=== PATIENT | male | born 1955 | race Caucasian/White ===

== ENCOUNTER 2019-11-11 23:38 | Inpatient (IN) ==
[2019-11-12] MEDS ORDERED: SODIUM CHLORIDE 0.9% 1,000 ML IV STA ×2 (00:22→00:49)
[2019-11-12 00:36] LABS: Basophils % 0.3 % (0.0-0.8); Eosinophils % 0.1 % (0.00-10.9); Hematocrit 57.4 VOL% (42.0-52.0); Immature Granulocytes % 1.4 %; Immature Granulocytes Absolute 0.14 #; Lymphocytes # 1.2 10*3/uL (1.4-4.0); Lymphocytes % 11.6 % (21.2-54.2); Mean Corpuscular HGB Conc 33.1 GM/DL (32-36); Mean Corpuscular Volume 97.6 FL (87-102); Mean Platelet Volume 12.3 FL (9.6-12.0); Monocytes % 8.3 % (1.7-12.7); NRBC # 0.02 10*3/uL; Neutrophils % 78.3 % (38.7-73.9); Platelet Count 167 T/CUMM (130-400); Red Blood Count 5.88 MC/CUMM (3.8-5.5); Red Cell Distribution Width 17.2 % (9.3-17.3)
[2019-11-12 00:44] LABS: INR 2.7
[2019-11-12 00:49] LABS: PT Patient Result 27.2 SECS (9.8-11.9)
[2019-11-12] MEDS ORDERED: VANCOMYCIN INJ 1,000 MG in SODIUM CHLORIDE 0.9% 250 ML IV STA (00:57)
[2019-11-12] MEDS ORDERED: PIPERACILLIN/TAZOBACTAM 3,375 MG in SODIUM CHLORIDE 0.9% 100 ML IV STA (00:57)
[2019-11-12 01:23] LABS: Albumin 2.9 G/DL (3.4-5.0); Bilirubin,Total 2.8 MG/DL (0.2-1.0); CKMB % 3.8 %; Calcium 8.8 MG/DL (8.5-10.1); Osmolality,Calculated 272.5 MOS/KG (273-304); Total Protein 5.5 G/DL (6.4-8.3)
[2019-11-12 01:28] LABS: Troponin I 0.085 NG/ML (0.00-0.045)
[2019-11-12 01:41] LABS: Amorphous Crystals,Urine Occasional /HPF (Few); Apearance,Urine CLOUDY (Clear); Bilirubin,Urine Small mg/dL (Negative); Blood, Urine Small mg/dL (Negative); Calcium Oxalate Crystals,Urine Occasional /HPF (Few); Glucose,Urine (UA) 50 mg/dL (Negative); Hyaline Casts,Urine 43 /LPF (0-3); Ketones,Urine Negative (Negative); Mucus,Urine Occasional /LPF (Occasional); Nitrite,Urine Negative (Negative); Protein,Urine 100 MG/DL; RBC,Urine 24 /HPF (0-4); Sperm,Urine Occasional /HPF (Negative); Squamous Epithelial Cell,Urine Occasional /HPF (0-10); Urine Color Amber (Yellow); Urine Specific Gravity 1.026 (1.001-1.035); WBC,Urine 31 /HPF (0-6)
[2019-11-12] MEDS ORDERED: DOCUSATE SODIUM 100 MG CAPSULE PO PRN (02:48)
[2019-11-12] MEDS ORDERED: ONDANSETRON 4 MG/2 ML VIAL IV PRN (02:48)
[2019-11-12] MEDS ORDERED: ACETAMINOPHEN 325 MG TABLET PO PRN (02:48)
[2019-11-12] MEDS ORDERED: GLUCAGON 1 MG VIAL IM PRN (02:48)
[2019-11-12] MEDS ORDERED: DEXTROSE 10% 250 ML BAG IV PRN (02:48)
[2019-11-12 05:46] LABS: Basophils % 0.4 % (0.0-0.8); Eosinophils % 0.1 % (0.00-10.9); Hematocrit 56.5 VOL% (42.0-52.0); Hemoglobin 18.2 GM/DL (14.0-18.0); Immature Granulocytes % 0.9 %; Lymphocytes # 1.2 10*3/uL (1.4-4.0); Lymphocytes % 11.3 % (21.2-54.2); Mean Corpuscular HGB Conc 32.2 GM/DL (32-36); Mean Corpuscular Volume 100.2 FL (87-102); Mean Platelet Volume 11.6 FL (9.6-12.0); Monocytes % 9.2 % (1.7-12.7); Neutrophils % 78.1 % (38.7-73.9); Platelet Count 133 T/CUMM (130-400); Red Blood Count 5.64 MC/CUMM (3.8-5.5); Red Cell Distribution Width 16.5 % (9.3-17.3)
[2019-11-12 06:23] LABS: Albumin 2.9 G/DL (3.4-5.0); Bilirubin,Total 2.5 MG/DL (0.2-1.0); Calcium 8.7 MG/DL (8.5-10.1); Osmolality,Calculated 274.5 MOS/KG (273-304); Risk Ratio 4.74; Thyroid Stimulating Hormone 3.97 uIU/ml (0.358-3.74); Total Protein 5.6 G/DL (6.4-8.3); VLDL CHOLESTEROL 24.6 MG/DL
[2019-11-12 06:26] LABS: Macrocytosis 1+; Polychromasia Slight; Target Cells Slight
[2019-11-12 06:27] LABS: Platelet Estimate Adequate
[2019-11-12] MEDS ORDERED: FUROSEMIDE 40 MG/4 ML VIAL IV SCH ×2 (08:00→09:00)
[2019-11-12] MEDS: ASPIRIN EC 81 MG TABLET PO SCH (09:42)
[2019-11-12] MEDS: PANTOPRAZOLE 40 MG TABLET PO SCH (09:42)
[2019-11-12] MEDS: METOPROLOL TARTRATE 25 MG TABLET PO SCH ×2 (09:42→21:19)
[2019-11-12] MEDS: PIPERACILLIN/TAZOBACTAM 3,375 MG in SODIUM CHLORIDE 0.9% 100 ML IV SCH ×2 (09:42→16:21)
[2019-11-12] MEDS: ENOXAPARIN 40 MG/0.4 ML SYRINGE SUBCUT SCH (09:43)
[2019-11-13] MEDS: PIPERACILLIN/TAZOBACTAM 3,375 MG in SODIUM CHLORIDE 0.9% 100 ML IV SCH ×3 (01:52→16:21)
[2019-11-13 06:40] LABS: Calcium 8.4 MG/DL (8.5-10.1); Osmolality,Calculated 271.9 MOS/KG (273-304)
[2019-11-13] MEDS: ASPIRIN EC 81 MG TABLET PO SCH (08:44)
[2019-11-13] MEDS: ENOXAPARIN 40 MG/0.4 ML SYRINGE SUBCUT SCH (08:44)
[2019-11-13] MEDS: PANTOPRAZOLE 40 MG TABLET PO SCH (08:44)
[2019-11-13] MEDS: METOPROLOL TARTRATE 25 MG TABLET PO SCH ×2 (08:44→22:00)
[2019-11-13] MEDS: DOBUTamine 500 MG/250 ML PREMIX IV SCH (09:20)
[2019-11-13] MEDS: FUROSEMIDE 40 MG/4 ML VIAL IV SCH (16:21)
[2019-11-14] MEDS: PIPERACILLIN/TAZOBACTAM 3,375 MG in SODIUM CHLORIDE 0.9% 100 ML IV SCH ×3 (00:38→16:32)
[2019-11-14] MEDS: DOBUTamine 500 MG/250 ML PREMIX IV SCH ×2 (02:50→21:16)
[2019-11-14 05:53] LABS: Basophils % 0.3 % (0.0-0.8); Eosinophils # 0.1 10*3/uL (0.0-0.87); Eosinophils % 1.1 % (0.00-10.9); Hematocrit 45.4 VOL% (42.0-52.0); Hemoglobin 14.9 GM/DL (14.0-18.0); Immature Granulocytes % 0.5 %; Immature Granulocytes Absolute 0.04 #; Lymphocytes # 0.7 10*3/uL (1.4-4.0); Lymphocytes % 9.4 % (21.2-54.2); Mean Corpuscular HGB Conc 32.8 GM/DL (32-36); Mean Corpuscular Volume 98.5 FL (87-102); Mean Platelet Volume 11.6 FL (9.6-12.0); Monocytes % 9.9 % (1.7-12.7); Neutrophils % 78.8 % (38.7-73.9); Platelet Count 86 T/CUMM (130-400); Red Blood Count 4.61 MC/CUMM (3.8-5.5); Red Cell Distribution Width 16.2 % (9.3-17.3); White Blood Count 7.9 T/CUMM (4-12)
[2019-11-14 06:06] LABS: Calcium 7.9 MG/DL (8.5-10.1); Osmolality,Calculated 278.4 MOS/KG (273-304)
[2019-11-14] MEDS ORDERED: POTASSIUM CHLORIDE 20 MEQ TABLET PO PRN ×3 (06:19→06:27)
[2019-11-14 06:26] LABS: Hypochromasia Slight
[2019-11-14 06:27] LABS: Platelet Estimate Decreased
[2019-11-14] MEDS: FUROSEMIDE 40 MG/4 ML VIAL IV SCH ×2 (08:37→16:31)
[2019-11-14] MEDS: POTASSIUM CHLORIDE 10 MEQ TABLET PO SCH ×2 (08:51→21:16)
[2019-11-14] MEDS: MAGNESIUM CHLORIDE 64 MG TABLET PO SCH ×2 (08:51→21:17)
[2019-11-14] MEDS: METOPROLOL TARTRATE 25 MG TABLET PO SCH ×2 (08:51→21:17)
[2019-11-14] MEDS: ASPIRIN EC 81 MG TABLET PO SCH (08:51)
[2019-11-15] MEDS: PIPERACILLIN/TAZOBACTAM 3,375 MG in SODIUM CHLORIDE 0.9% 100 ML IV SCH ×3 (01:23→18:21)
[2019-11-15 05:28] LABS: Basophils % 0.4 % (0.0-0.8); Eosinophils % 0.7 % (0.00-10.9); Hematocrit 44.1 VOL% (42.0-52.0); Hemoglobin 14.6 GM/DL (14.0-18.0); Immature Granulocytes % 0.4 %; Immature Granulocytes Absolute 0.02 #; Lymphocytes # 0.4 10*3/uL (1.4-4.0); Lymphocytes % 7.3 % (21.2-54.2); Mean Corpuscular HGB Conc 33.1 GM/DL (32-36); Mean Corpuscular Volume 98.9 FL (87-102); Mean Platelet Volume 11.4 FL (9.6-12.0); Monocytes % 7.6 % (1.7-12.7); Neutrophils % 83.6 % (38.7-73.9); Platelet Count 85 T/CUMM (130-400); Red Blood Count 4.46 MC/CUMM (3.8-5.5); Red Cell Distribution Width 15.9 % (9.3-17.3); White Blood Count 5.4 T/CUMM (4-12)
[2019-11-15 05:48] LABS: Calcium 7.9 MG/DL (8.5-10.1); Osmolality,Calculated 278.1 MOS/KG (273-304)
[2019-11-15 05:51] LABS: Band Neutrophils 1 % (0-10); Lymphocytes 4 % (20-55); Segmented Neutrophils 93 % (50-85); Total Cells Counted 100
[2019-11-15 05:52] LABS: Hypochromasia Slight; Macrocytosis Slight; Platelet Estimate Decreased; Polychromasia Slight
[2019-11-15] MEDS: METOPROLOL TARTRATE 25 MG TABLET PO SCH ×2 (08:40→20:57)
[2019-11-15] MEDS: FUROSEMIDE 40 MG/4 ML VIAL IV SCH ×2 (08:40→16:19)
[2019-11-15] MEDS: POTASSIUM CHLORIDE 20 MEQ TABLET PO SCH ×2 (08:40→20:57)
[2019-11-15] MEDS: ASPIRIN EC 81 MG TABLET PO SCH (08:40)
[2019-11-15] MEDS: MAGNESIUM CHLORIDE 64 MG TABLET PO SCH ×2 (08:41→20:57)
[2019-11-15] MEDS: metOLazone 5 MG TABLET PO SCH (09:42)
[2019-11-15] MEDS: FLUCONAZOLE 200 MG TABLET PO SCH (12:46)
[2019-11-15] MEDS: DOBUTamine 500 MG/250 ML PREMIX IV SCH (18:09)
[2019-11-15] MEDS: AZITHROMYCIN INJ 500 MG in SODIUM CHLORIDE 0.9% 250 ML IV SCH (22:33)
[2019-11-16 04:02] LABS: Basophils % 0.2 % (0.0-0.8); Eosinophils % 0.9 % (0.00-10.9); Hematocrit 47.2 VOL% (42.0-52.0); Hemoglobin 15.3 GM/DL (14.0-18.0); Immature Granulocytes % 0.4 %; Immature Granulocytes Absolute 0.02 #; Lymphocytes # 0.7 10*3/uL (1.4-4.0); Lymphocytes % 14.9 % (21.2-54.2); Mean Corpuscular HGB Conc 32.4 GM/DL (32-36); Mean Corpuscular Volume 99.4 FL (87-102); Mean Platelet Volume 11.4 FL (9.6-12.0); Monocytes % 11.2 % (1.7-12.7); Neutrophils % 72.4 % (38.7-73.9); Red Blood Count 4.75 MC/CUMM (3.8-5.5); Red Cell Distribution Width 15.9 % (9.3-17.3); White Blood Count 4.6 T/CUMM (4-12)
[2019-11-16 04:06] LABS: Platelet Count 79 T/CUMM (130-400)
[2019-11-16] MEDS: PIPERACILLIN/TAZOBACTAM 3,375 MG in SODIUM CHLORIDE 0.9% 100 ML IV SCH ×3 (04:16→20:37)
[2019-11-16 04:34] LABS: Hypochromasia Slight; Macrocytosis Slight; Polychromasia Slight
[2019-11-16 04:35] LABS: Platelet Estimate Decreased
[2019-11-16 05:44] LABS: Calcium 8.3 MG/DL (8.5-10.1); Osmolality,Calculated 275.1 MOS/KG (273-304)
[2019-11-16] MEDS ORDERED: MAGNESIUM SULF RIDER 2 GM in PREMIX 1 EACH IV PRN (06:22)
[2019-11-16] MEDS ORDERED: MAGNESIUM SULF RIDER 4 GM in PREMIX 1 EACH IV PRN (06:22)
[2019-11-16] MEDS: DOBUTamine 500 MG/250 ML PREMIX IV SCH ×2 (06:58→11:21)
[2019-11-16] MEDS ORDERED: MAGNESIUM SULF RIDER 4 GM in PREMIX 1 EACH IV ONE (07:33)
[2019-11-16] MEDS: FUROSEMIDE 40 MG/4 ML VIAL IV SCH ×2 (08:41→17:26)
[2019-11-16] MEDS: METOPROLOL TARTRATE 25 MG TABLET PO SCH ×2 (09:47→20:39)
[2019-11-16] MEDS: MAGNESIUM CHLORIDE 64 MG TABLET PO SCH ×2 (09:47→20:38)
[2019-11-16] MEDS: metOLazone 5 MG TABLET PO SCH (09:47)
[2019-11-16] MEDS: ASPIRIN EC 81 MG TABLET PO SCH (09:47)
[2019-11-16] MEDS: FLUCONAZOLE 200 MG TABLET PO SCH (09:48)
[2019-11-16] MEDS: POTASSIUM CHLORIDE 20 MEQ TABLET PO SCH ×2 (09:48→20:38)
[2019-11-16] MEDS: ALBUMIN 25% 25 GM in PREMIX 1 EACH IV SCH (17:32)
[2019-11-17] MEDS: ALBUMIN 25% 25 GM in PREMIX 1 EACH IV SCH ×3 (01:55→15:28)
[2019-11-17] MEDS: PIPERACILLIN/TAZOBACTAM 3,375 MG in SODIUM CHLORIDE 0.9% 100 ML IV SCH ×3 (01:57→17:38)
[2019-11-17] MEDS: DOBUTamine 500 MG/250 ML PREMIX IV SCH ×2 (05:28→23:26)
[2019-11-17 06:51] LABS: Basophils % 0.2 % (0.0-0.8); Eosinophils % 0.7 % (0.00-10.9); Hematocrit 43.3 VOL% (42.0-52.0); Immature Granulocytes % 0.4 %; Immature Granulocytes Absolute 0.02 #; Lymphocytes # 0.6 10*3/uL (1.4-4.0); Lymphocytes % 11.1 % (21.2-54.2); Mean Corpuscular HGB Conc 32.3 GM/DL (32-36); Mean Corpuscular Volume 98.9 FL (87-102); Mean Platelet Volume 11.8 FL (9.6-12.0); Neutrophils % 77.6 % (38.7-73.9); Red Blood Count 4.38 MC/CUMM (3.8-5.5); Red Cell Distribution Width 16.1 % (9.3-17.3); White Blood Count 5.5 T/CUMM (4-12)
[2019-11-17 06:53] LABS: Platelet Count 81 T/CUMM (130-400)
[2019-11-17 07:27] LABS: Calcium 8.5 MG/DL (8.5-10.1); Osmolality,Calculated 275.1 MOS/KG (273-304)
[2019-11-17 09:03] LABS: Hypochromasia Slight; Platelet Estimate Decreased
[2019-11-17 09:04] LABS: Macrocytosis Slight
[2019-11-17] MEDS: MAGNESIUM CHLORIDE 64 MG TABLET PO SCH ×2 (09:17→21:09)
[2019-11-17] MEDS: ASPIRIN EC 81 MG TABLET PO SCH (09:17)
[2019-11-17] MEDS: FUROSEMIDE 40 MG/4 ML VIAL IV SCH ×2 (09:17→15:20)
[2019-11-17] MEDS: METOPROLOL TARTRATE 25 MG TABLET PO SCH ×2 (09:18→21:12)
[2019-11-17] MEDS: FLUCONAZOLE 200 MG TABLET PO SCH (09:18)
[2019-11-17] MEDS: POTASSIUM CHLORIDE 20 MEQ TABLET PO SCH ×2 (09:18→21:09)
[2019-11-17] MEDS: metOLazone 5 MG TABLET PO SCH (09:18)
[2019-11-17 11:36] LABS: Myeloperoxidase Antibody < 0.2 U
[2019-11-17] MEDS: AZITHROMYCIN INJ 500 MG in SODIUM CHLORIDE 0.9% 250 ML IV SCH ×2 (23:32)
[2019-11-18] MEDS: DOBUTamine 500 MG/250 ML PREMIX IV SCH (01:54)
[2019-11-18] MEDS: ALBUMIN 25% 25 GM in PREMIX 1 EACH IV SCH ×2 (02:06→09:17)
[2019-11-18] MEDS: PIPERACILLIN/TAZOBACTAM 3,375 MG in SODIUM CHLORIDE 0.9% 100 ML IV SCH ×3 (03:34→18:43)
[2019-11-18 06:47] LABS: Basophils % 0.5 % (0.0-0.8); Eosinophils % 0.7 % (0.00-10.9); Hematocrit 44.1 VOL% (42.0-52.0); Hemoglobin 14.2 GM/DL (14.0-18.0); Immature Granulocytes % 0.3 %; Immature Granulocytes Absolute 0.02 #; Lymphocytes # 0.8 10*3/uL (1.4-4.0); Lymphocytes % 13.7 % (21.2-54.2); Mean Corpuscular HGB Conc 32.2 GM/DL (32-36); Mean Corpuscular Volume 99.5 FL (87-102); Mean Platelet Volume 11.3 FL (9.6-12.0); Monocytes % 10.9 % (1.7-12.7); Neutrophils % 73.9 % (38.7-73.9); Red Blood Count 4.43 MC/CUMM (3.8-5.5); Red Cell Distribution Width 15.9 % (9.3-17.3); White Blood Count 6.1 T/CUMM (4-12)
[2019-11-18 06:53] LABS: Platelet Count 88 T/CUMM (130-400)
[2019-11-18 07:10] LABS: Calcium 8.6 MG/DL (8.5-10.1); Osmolality,Calculated 278.8 MOS/KG (273-304)
[2019-11-18 07:14] LABS: Macrocytosis Slight; Platelet Estimate Decreased
[2019-11-18] MEDS: FUROSEMIDE 40 MG/4 ML VIAL IV SCH ×2 (09:18→15:46)
[2019-11-18] MEDS: MAGNESIUM CHLORIDE 64 MG TABLET PO SCH ×2 (09:18→22:32)
[2019-11-18] MEDS: METOPROLOL TARTRATE 25 MG TABLET PO SCH ×2 (09:18→22:33)
[2019-11-18] MEDS: POTASSIUM CHLORIDE 20 MEQ TABLET PO SCH ×2 (09:18→22:33)
[2019-11-18] MEDS: ASPIRIN EC 81 MG TABLET PO SCH (09:18)
[2019-11-18] MEDS: FLUCONAZOLE 200 MG TABLET PO SCH (09:18)
[2019-11-18 12:10] LABS: Fungitell Quantitative Value < 31 pg/mL (<60 pg/mL)
[2019-11-18] MEDS ORDERED: DOBUTamine 500 MG/250 ML PREMIX IV SCH (15:00)
[2019-11-18] MEDS: SKIN HEALING OINT (AQUAPHOR) 50 GM TUBE TOP SCH ×2 (15:44→22:33)
[2019-11-19] MEDS: PIPERACILLIN/TAZOBACTAM 3,375 MG in SODIUM CHLORIDE 0.9% 100 ML IV SCH ×2 (03:08→11:30)
[2019-11-19 08:10] LABS: Basophils % 0.4 % (0.0-0.8); Eosinophils # 0.1 10*3/uL (0.0-0.87); Eosinophils % 1.1 % (0.00-10.9); Hematocrit 44.3 VOL% (42.0-52.0); Hemoglobin 14.5 GM/DL (14.0-18.0); Immature Granulocytes % 0.5 %; Immature Granulocytes Absolute 0.04 #; Lymphocytes # 0.9 10*3/uL (1.4-4.0); Lymphocytes % 12.6 % (21.2-54.2); Mean Corpuscular HGB Conc 32.7 GM/DL (32-36); Mean Corpuscular Volume 98.4 FL (87-102); Mean Platelet Volume 11.8 FL (9.6-12.0); Monocytes % 9.4 % (1.7-12.7); Red Cell Distribution Width 16.1 % (9.3-17.3); White Blood Count 7.3 T/CUMM (4-12)
[2019-11-19 08:13] LABS: Platelet Count 96 T/CUMM (130-400)
[2019-11-19 08:18] LABS: Calcium 8.9 MG/DL (8.5-10.1)
[2019-11-19 08:51] LABS: Hypochromasia 1+
[2019-11-19 08:52] LABS: Macrocytosis 1+; Platelet Estimate Decreased
[2019-11-19] MEDS: ASPIRIN EC 81 MG TABLET PO SCH (09:37)
[2019-11-19] MEDS: POTASSIUM CHLORIDE 20 MEQ TABLET PO SCH ×2 (09:37→21:19)
[2019-11-19] MEDS: SPIRONOLACTONE 25 MG TABLET PO SCH ×2 (09:37→21:19)
[2019-11-19] MEDS: MAGNESIUM CHLORIDE 64 MG TABLET PO SCH ×2 (09:37→21:19)
[2019-11-19] MEDS: FLUCONAZOLE 200 MG TABLET PO SCH (09:37)
[2019-11-19] MEDS: METOPROLOL TARTRATE 25 MG TABLET PO SCH ×2 (09:37→21:19)
[2019-11-19] MEDS: FUROSEMIDE 40 MG/4 ML VIAL IV SCH (09:38)
[2019-11-19 12:00] LABS: QuantiFERON-Tb Gold Pl Negative (Negative); TB2 Ag Minus Result -0.01 IU/mL
[2019-11-19] MEDS: SKIN HEALING OINT (AQUAPHOR) 50 GM TUBE TOP SCH ×2 (15:33→21:22)
[2019-11-19] MEDS: FUROSEMIDE 80 MG TABLET PO SCH (15:34)
[2019-11-19] MEDS: AMOXICILLIN/CLAV 875 MG TABLET PO SCH (21:19)
[2019-11-20 03:52] LABS: Basophils # 0.1 10*3/uL (0.0-0.2); Basophils % 0.6 % (0.0-0.8); Eosinophils # 0.1 10*3/uL (0.0-0.87); Eosinophils % 0.9 % (0.00-10.9); Hematocrit 50.6 VOL% (42.0-52.0); Immature Granulocytes % 0.7 %; Immature Granulocytes Absolute 0.07 #; Lymphocytes # 1.9 10*3/uL (1.4-4.0); Lymphocytes % 19.3 % (21.2-54.2); Mean Corpuscular HGB Conc 31.6 GM/DL (32-36); Mean Corpuscular Volume 101.6 FL (87-102); Mean Platelet Volume 11.4 FL (9.6-12.0); Neutrophils % 68.5 % (38.7-73.9); Platelet Count 135 T/CUMM (130-400); Red Blood Count 4.98 MC/CUMM (3.8-5.5); Red Cell Distribution Width 16.4 % (9.3-17.3); White Blood Count 9.9 T/CUMM (4-12)
[2019-11-20 04:17] LABS: Calcium 9.1 MG/DL (8.5-10.1); Osmolality,Calculated 277.1 MOS/KG (273-304)
[2019-11-20 04:49] LABS: Hypochromasia 1+; Macrocytosis 1+; Platelet Estimate Adequate
[2019-11-20] MEDS: ASPIRIN EC 81 MG TABLET PO SCH (09:58)
[2019-11-20] MEDS: AMOXICILLIN/CLAV 875 MG TABLET PO SCH ×2 (09:58→21:12)
[2019-11-20] MEDS: FLUCONAZOLE 200 MG TABLET PO SCH (09:58)
[2019-11-20] MEDS: FUROSEMIDE 80 MG TABLET PO SCH ×2 (09:58→17:55)
[2019-11-20] MEDS: MAGNESIUM CHLORIDE 64 MG TABLET PO SCH ×2 (09:59→21:12)
[2019-11-20] MEDS: METOPROLOL TARTRATE 25 MG TABLET PO SCH ×2 (09:59→21:12)
[2019-11-20] MEDS: SPIRONOLACTONE 25 MG TABLET PO SCH ×2 (09:59→21:12)
[2019-11-20] MEDS: POTASSIUM CHLORIDE 20 MEQ TABLET PO SCH (10:07)
[2019-11-20] MEDS: SKIN HEALING OINT (AQUAPHOR) 50 GM TUBE TOP SCH ×2 (11:25→21:12)
[2019-11-21 06:05] LABS: Calcium 9.5 MG/DL (8.5-10.1); Osmolality,Calculated 277.4 MOS/KG (273-304)
[2019-11-21] MEDS: FUROSEMIDE 80 MG TABLET PO SCH (08:38)
[2019-11-21] MEDS: METOPROLOL TARTRATE 25 MG TABLET PO SCH ×2 (08:39→22:02)
[2019-11-21] MEDS: MAGNESIUM CHLORIDE 64 MG TABLET PO SCH ×2 (08:39→22:01)
[2019-11-21] MEDS: SKIN HEALING OINT (AQUAPHOR) 50 GM TUBE TOP SCH ×2 (08:39→22:02)
[2019-11-21] MEDS: FLUCONAZOLE 200 MG TABLET PO SCH (08:39)
[2019-11-21] MEDS: AMOXICILLIN/CLAV 875 MG TABLET PO SCH ×2 (08:39→22:01)
[2019-11-21] MEDS: ASPIRIN EC 81 MG TABLET PO SCH (08:41)
[2019-11-21] MEDS ORDERED: POTASSIUM CHLORIDE 20 MEQ TABLET PO SCH (09:00)
[2019-11-21] MEDS: ALBUTEROL/IPRATROPIUM 3 ML NEB RESP TX SCH (23:30)
[2019-11-22 06:23] LABS: Calcium 9.7 MG/DL (8.5-10.1); Osmolality,Calculated 276.7 MOS/KG (273-304)
[2019-11-22] MEDS: ALBUTEROL/IPRATROPIUM 3 ML NEB RESP TX SCH ×4 (07:27→19:39)
[2019-11-22] MEDS ORDERED: SODIUM CHLORIDE 0.9% 1,000 ML IV SCH (07:30)
[2019-11-22] MEDS: SKIN HEALING OINT (AQUAPHOR) 50 GM TUBE TOP SCH ×2 (09:31→21:38)
[2019-11-22] MEDS: ASPIRIN EC 81 MG TABLET PO SCH (09:31)
[2019-11-22] MEDS: METOPROLOL TARTRATE 25 MG TABLET PO SCH ×2 (09:32→21:38)
[2019-11-22] MEDS: AMOXICILLIN/CLAV 875 MG TABLET PO SCH ×2 (09:32→21:38)
[2019-11-22] MEDS: MAGNESIUM CHLORIDE 64 MG TABLET PO SCH ×2 (09:32→21:38)
[2019-11-23 06:21] LABS: Basophils # 0.1 10*3/uL (0.0-0.2); Basophils % 0.6 % (0.0-0.8); Eosinophils % 0.1 % (0.00-10.9); Hematocrit 52.8 VOL% (42.0-52.0); Hemoglobin 17.1 GM/DL (14.0-18.0); Immature Granulocytes % 1.7 %; Immature Granulocytes Absolute 0.22 #; Lymphocytes # 2.3 10*3/uL (1.4-4.0); Lymphocytes % 17.7 % (21.2-54.2); Mean Corpuscular HGB Conc 32.4 GM/DL (32-36); Mean Corpuscular Volume 99.4 FL (87-102); Mean Platelet Volume 10.9 FL (9.6-12.0); Monocytes % 9.3 % (1.7-12.7); NRBC # 0.09 10*3/uL; Neutrophils % 70.6 % (38.7-73.9); Platelet Count 229 T/CUMM (130-400); Red Blood Count 5.31 MC/CUMM (3.8-5.5); Red Cell Distribution Width 17.2 % (9.3-17.3); White Blood Count 13.1 T/CUMM (4-12)
[2019-11-23 06:54] LABS: Albumin 3.7 G/DL (3.4-5.0); Bilirubin,Total 2.7 MG/DL (0.2-1.0); Osmolality,Calculated 277.9 MOS/KG (273-304); Total Protein 6.3 G/DL (6.4-8.3)
[2019-11-23] MEDS ORDERED: SODIUM POLYSTYRENE SULFATE 15 GM/60 ML BOTTLE PO ONE (07:20)
[2019-11-23] MEDS: ALBUTEROL/IPRATROPIUM 3 ML NEB RESP TX SCH ×4 (07:49→20:13)
[2019-11-23] MEDS: SKIN HEALING OINT (AQUAPHOR) 50 GM TUBE TOP SCH ×2 (09:19→21:18)
[2019-11-23] MEDS: METOPROLOL TARTRATE 25 MG TABLET PO SCH (09:19)
[2019-11-23] MEDS: AMOXICILLIN/CLAV 875 MG TABLET PO SCH (09:20)
[2019-11-23] MEDS: ASPIRIN EC 81 MG TABLET PO SCH (09:20)
[2019-11-23] MEDS: MAGNESIUM CHLORIDE 64 MG TABLET PO SCH ×2 (09:20→21:18)
[2019-11-23] MEDS: ALBUMIN 5% 12.5 GM in PREMIX 1 EACH IV SCH (16:05)
[2019-11-23] MEDS: AMOXICILLIN/CLAV 500 MG TABLET PO SCH (16:12)
[2019-11-24] MEDS: ALBUMIN 5% 12.5 GM in PREMIX 1 EACH IV SCH ×3 (00:32→21:17)
[2019-11-24 05:22] LABS: Basophils % 0.3 % (0.0-0.8); Eosinophils % 0.4 % (0.00-10.9); Hematocrit 43.6 VOL% (42.0-52.0); Hemoglobin 14.2 GM/DL (14.0-18.0); Immature Granulocytes % 0.7 %; Immature Granulocytes Absolute 0.07 #; Lymphocytes # 1.2 10*3/uL (1.4-4.0); Lymphocytes % 11.3 % (21.2-54.2); Mean Corpuscular HGB Conc 32.6 GM/DL (32-36); Mean Corpuscular Volume 98.2 FL (87-102); Mean Platelet Volume 10.7 FL (9.6-12.0); Monocytes % 9.6 % (1.7-12.7); NRBC # 0.06 10*3/uL; Neutrophils % 77.7 % (38.7-73.9); Platelet Count 170 T/CUMM (130-400); Red Blood Count 4.44 MC/CUMM (3.8-5.5); Red Cell Distribution Width 16.1 % (9.3-17.3); White Blood Count 10.7 T/CUMM (4-12)
[2019-11-24 05:48] LABS: Calcium 9.4 MG/DL (8.5-10.1); Osmolality,Calculated 285.7 MOS/KG (273-304)
[2019-11-24 05:50] LABS: Calcium 9.1 MG/DL (8.5-10.1); Osmolality,Calculated 286.5 MOS/KG (273-304)
[2019-11-24] MEDS: ALBUTEROL/IPRATROPIUM 3 ML NEB RESP TX SCH ×4 (07:25→19:08)
[2019-11-24] MEDS: AMOXICILLIN/CLAV 500 MG TABLET PO SCH ×2 (08:47→16:50)
[2019-11-24] MEDS: CHOLECALCIFEROL 5,000 UNIT TABLET PO SCH (08:47)
[2019-11-24] MEDS: ASPIRIN EC 81 MG TABLET PO SCH (08:47)
[2019-11-24] MEDS: SKIN HEALING OINT (AQUAPHOR) 50 GM TUBE TOP SCH ×2 (08:57→21:17)
[2019-11-24] MEDS ORDERED: ALUMINUM/MAGNES/SIMETH MAX STR 30 ML UDCUP PO PRN (11:33)
[2019-11-24] MEDS ORDERED: CALCIUM CARBONATE CHEW 500 MG TABLET PO PRN (11:33)
[2019-11-25 05:45] LABS: Basophils % 0.3 % (0.0-0.8); Eosinophils # 0.1 10*3/uL (0.0-0.87); Eosinophils % 0.8 % (0.00-10.9); Hematocrit 44.5 VOL% (42.0-52.0); Hemoglobin 14.6 GM/DL (14.0-18.0); Immature Granulocytes % 0.8 %; Immature Granulocytes Absolute 0.07 #; Lymphocytes # 1.1 10*3/uL (1.4-4.0); Lymphocytes % 12.7 % (21.2-54.2); Mean Corpuscular HGB Conc 32.8 GM/DL (32-36); Mean Corpuscular Volume 98.7 FL (87-102); Monocytes % 10.7 % (1.7-12.7); NRBC # 0.06 10*3/uL; Neutrophils % 74.7 % (38.7-73.9); Platelet Count 151 T/CUMM (130-400); Red Blood Count 4.51 MC/CUMM (3.8-5.5); Red Cell Distribution Width 16.2 % (9.3-17.3)
[2019-11-25 06:06] LABS: Calcium 9.2 MG/DL (8.5-10.1); Osmolality,Calculated 279.7 MOS/KG (273-304)
[2019-11-25] MEDS: ALBUTEROL/IPRATROPIUM 3 ML NEB RESP TX SCH (07:53)
[2019-11-25] MEDS: CHOLECALCIFEROL 5,000 UNIT TABLET PO SCH (08:45)
[2019-11-25] MEDS: ALBUMIN 5% 12.5 GM in PREMIX 1 EACH IV SCH (08:45)
[2019-11-25] MEDS: ASPIRIN EC 81 MG TABLET PO SCH (08:45)
[2019-11-25] MEDS: SKIN HEALING OINT (AQUAPHOR) 50 GM TUBE TOP SCH (08:45)
[2019-11-25] MEDS: AMOXICILLIN/CLAV 500 MG TABLET PO SCH (08:45)
[2019-11-25 11:34] VITALS: BP 128/60
[2019-11-28 00:21] LABS: CDT Result Negative (Negative); CDT Specimen Source STOOL
== END 2019-11-25 14:37 | disposition home or self-care (01) | DRG 291 ==
LOC: N.ED 23:38 → N.EDINP 11-12 02:48 → SUATTDRO 11-12 02:48 → N.EDINP 11-12 03:46 → N.TELEN 11-12 03:59
PROVIDERS: ADMIT Family Medicine; ATTEND Internal Medicine